=== PATIENT | female | born 1995 | race Hispanic/Latino ===

== ENCOUNTER 2022-10-03 14:41 | Inpatient (IN) | payer OTHER ==
[~2022-10-03 14:41] MED LIST: Bupivacaine HCl 0.5%/Epinephrine 1:200,000/PF 30 ml Vial ONE
[2022-10-03 15:05] VITALS: BMI 29.9
[2022-10-03] MEDS ORDERED: Misoprostol 200 MCG TAB PR PRN (15:33)
[2022-10-03] MEDS ORDERED: Ondansetron PF 4 MG/2 ML Vial IVP PRN ×3 (15:33→23:51)
[2022-10-03] MEDS ORDERED: Zolpidem Tartrate 5 MG TAB PO PRN (15:33)
[2022-10-03] MEDS ORDERED: Butorphanol Tartrate 1 MG/ML VIAL SLOW IVP PRN (15:33)
[2022-10-03] MEDS ORDERED: Acetaminophen 500 MG TAB PO PRN (15:33)
[2022-10-03] MEDS ORDERED: Docusate 100 MG CAP PO PRN (15:33)
[2022-10-03] MEDS ORDERED: Methylergonovine 0.2 MG/ML VIAL IM PRN (15:33)
[2022-10-03] MEDS ORDERED: Lidocaine 1% (PF) 30 ML VIAL SC PRN (15:33)
[2022-10-03] MEDS ORDERED: Diphenoxylate HCl/Atropine Tablet PO PRN (15:33)
[2022-10-03] MEDS ORDERED: Fentanyl 100 MCG/2 ML VIAL SLOW IVP PRN (15:33)
[2022-10-03] MEDS ORDERED: Promethazine HCl 25 MG/ML VIAL IM PRN ×3 (15:33→23:51)
[2022-10-03] MEDS ORDERED: hydrALAZINE 20 MG/ML VIAL SLOW IVP PRN ×2 (15:33→23:51)
[2022-10-03] MEDS ORDERED: Carboprost 250 MCG/ML AMP IM PRN (15:33)
[2022-10-03] MEDS ORDERED: NS w/ Oxytocin 30 units 500 ML IV SCH ×2 (15:45)
[2022-10-03] MEDS: Lactated Ringer's 1,000 ML IV SCH ×2 (15:47→17:45)
[2022-10-03 16:11] LABS: Mean Corpuscular HGB CONC 33.7 g/dL (32.0-36.0); Mean Corpuscular Hemoglobin 30.4 pg (27.0-33.0); Mean Corpuscular Volume 90.4 fl (81.6-98.3); Platelet Count 216 10x3/uL (150-450); RBC Distribution Width 14.1 % (11.5-14.5); Red Blood Cell (RBC) Count 4.27 10x6/uL (3.90-5.03); White Blood Cell (WBC) Count 12.7 10x3/uL (3.5-10.5)
[2022-10-03 16:43] LABS: Syphilis Antibody Nonreactive (Nonreactive); Syphilis Antibody Index 0.05 S/CO (<1.00 Non-Reactive)
[2022-10-03 16:45] LABS: HBSAg Index 0.16 S/CO (0-0.99); Hep B Surf Ag - L&D Non-Reactive S/CO (NonReactive)
[2022-10-03] MEDS ORDERED: Fentanyl 2 mcg/Bup 0.1% Cadd 100 ML ONE (17:38)
[2022-10-03] MEDS ORDERED: Acetaminophen 325 MG TAB PO PRN (18:12)
[2022-10-03] MEDS ORDERED: Moisturizing Cream (Eucerin) 113 GM JAR TOP PRN (18:12)
[2022-10-03] MEDS ORDERED: ePHEDrine Sulfate 50 MG/10 ML VIAL SLOW IVP PRN (18:12)
[2022-10-03] MEDS ORDERED: diphenhydrAMINE 50 MG/ML VIAL IVP PRN (18:12)
[2022-10-03] MEDS ORDERED: Naloxone HCl 0.4 mg/ml Vial IVP PRN ×2 (18:12)
[2022-10-03] MEDS ORDERED: Lactated Ringer's 500 ML IV PRN (18:12)
[2022-10-03] MEDS ORDERED: Fentanyl 2 mcg/Bupivacaine 0.1% Cassette 100 ML EPIDURAL SCH (18:15)
[2022-10-03] MEDS ORDERED: Communication Order-Pharmacy FS SCH (18:15)
[2022-10-03] MEDS: Tranexamic Acid 1,000 MG/10 ML VIAL IVP PRN ×2 (22:33→22:58)
[2022-10-03] MEDS ORDERED: Lanolin Ointment 7 GM TUBE TOP PRN (23:51)
[2022-10-03] MEDS ORDERED: Benzocaine-Menthol 82.5 ML CAN TOP PRN (23:51)
[2022-10-03] MEDS ORDERED: Bisacodyl 10 MG SUPP PR PRN (23:51)
[2022-10-03] MEDS ORDERED: Preparation H Ointment 28 GM TUBE PR PRN (23:51)
[2022-10-03] MEDS ORDERED: Boostrix 0.5 ML (Tdap) VIAL (>/=7 yrs of age) IM ONE (23:51)
[2022-10-03] MEDS ORDERED: Milk Of Magnesia 30 ML UDCUP PO PRN (23:51)
[2022-10-03] MEDS ORDERED: HYDROcodone/Acetaminophen 5/325 mg Tablet PO PRN ×2 (23:51)
[2022-10-03] MEDS ORDERED: diphenhydrAMINE 25 MG CAP PO PRN (23:51)
[2022-10-04 01:28] LABS: Hemoglobin 10.8 g/dL (12.0-15.5); Mean Corpuscular HGB CONC 33.3 g/dL (32.0-36.0); Mean Corpuscular Hemoglobin 30.4 pg (27.0-33.0); Mean Corpuscular Volume 91.3 fl (81.6-98.3); Mean Platelet Volume 11.3 fl (7.4-10.4); Platelet Count 202 10x3/uL (150-450); RBC Distribution Width 14.2 % (11.5-14.5); Red Blood Cell (RBC) Count 3.55 10x6/uL (3.90-5.03)
[2022-10-04 01:34] LABS: D-Dimer Test 4.31 mg/L FEU (0.19-0.50); INR-International Normal Ratio 0.9; PTT 29.8 sec (22.0-33.0); Prothrombin Time 9.8 sec (9.5-12.1)
[2022-10-04] MEDS: Ibuprofen 800 MG TAB PO SCH ×3 (06:12→22:00)
[2022-10-04] MEDS: Prenatal Vitamin 1 TAB PO SCH (08:20)
[2022-10-04] MEDS: Docusate 100 MG CAP PO SCH ×2 (08:20→22:00)
[2022-10-04] MEDS: Milk Of Magnesia 30 ML UDCUP PO SCH (08:20)
[2022-10-04] MEDS: Ferrous Sulfate 325 MG TAB PO SCH ×2 (08:22→17:06)
[2022-10-04 12:08] LABS: Hemoglobin 10.2 g/dL (12.0-15.5); Mean Corpuscular Volume 93.9 fl (81.6-98.3); Mean Platelet Volume 11.7 fl (7.4-10.4); Platelet Count 223 10x3/uL (150-450); RBC Distribution Width 14.6 % (11.5-14.5); Red Blood Cell (RBC) Count 3.29 10x6/uL (3.90-5.03); White Blood Cell (WBC) Count 17.5 10x3/uL (3.5-10.5)
[2022-10-05] MEDS: Ibuprofen 800 MG TAB PO SCH ×2 (05:47→13:49)
[2022-10-05] MEDS: Ferrous Sulfate 325 MG TAB PO SCH ×2 (07:12→15:00)
[2022-10-05 07:57] VITALS: BP 113/60; TEMP 98.6
[2022-10-05] MEDS: Prenatal Vitamin 1 TAB PO SCH (08:52)
[2022-10-05] MEDS: Docusate 100 MG CAP PO SCH (08:52)
[2022-10-05] MEDS: Milk Of Magnesia 30 ML UDCUP PO SCH (08:53)
== END 2022-10-05 16:10 | disposition home or self-care (01) | DRG 768 ==
LOC: CSHLD/OP 14:41 → CSHLD 17:41 → CSHPP 10-04 01:27
PROVIDERS: ADMIT Family Medicine; ATTEND Family Medicine
PROC: 10907ZC Drainage of Amniotic Fluid, Therapeutic from Products of Conception, Via Natural or Artificial Opening (ICD-10-PCS; 2022-10-03)
PROC: 10E0XZZ Delivery of Products of Conception, External Approach (ICD-10-PCS; principal; 2022-10-04)
PROC: 0UQC0ZZ Repair Cervix, Open Approach (ICD-10-PCS; 2022-10-04)
PROC: 0KQM0ZZ Repair Perineum Muscle, Open Approach (ICD-10-PCS; 2022-10-04)
DX: O76 Abnormality in fetal heart rate and rhythm complicating labor and delivery (principal); Z3A.40 40 weeks gestation of pregnancy; Z37.0 Single live birth; O71.3 Obstetric laceration of cervix; O72.1 Other immediate postpartum hemorrhage; O70.1 Second degree perineal laceration during delivery; O77.0 Labor and delivery complicated by meconium in amniotic fluid
CPT/HCPCS: 36415; 51702; 85027; 85049; 85300; 85362; 85379; 85384; 85610; 85730; 86780; 86850; 86900; 86901; 87340; 99285; J2590; J3010; J7120

== ENCOUNTER 2023-02-03 08:19 | Outpatient (CLI) | payer OTHER | END 2023-02-03 08:20 | disposition home or self-care (01) | LOC: CSHWCC 08:19 | PROVIDERS: ATTEND Nurse Practitioner Family | DX: L98.499 Non-pressure chronic ulcer of skin of other sites with unspecified severity (principal) | CPT/HCPCS: 99203; G0463 ==